=== PATIENT | male | born 1980 | race African-American/Black ===

== ENCOUNTER 2017-02-09 21:49 | Emergency (ER) | payer OTHER ==
[2017-02-09 22:03] VITALS: BP 137/82; PULSE 93; TEMP 98.5; BMI 31.1
[2017-02-09] MEDS ORDERED: DIPHTH,PERTUSS(ACELL),TET VAC 0.5 ML VIAL IM ONE (22:53)
[2017-02-09] MEDS ORDERED: CEPHALEXIN MONOHYDRATE 500 MG CAPSULE (UD) PO ONE (22:58)
--- NOTE | 2017-02-09 22:58 | PDOC ---
History of Present Illness - General Chief Complaint: Laceration Stated Complaint: INJURY TO THUMB Time Seen by Provider: 02/09/17 22:35 History Source: Patient - History of Present Illness Initial Comments: 02/09/17 22:55 36 year old male reports accidentally drilling left thumb while fixing the cabinet sustaine 2 cm laceration to proximal end of left thumb. patient able full rom. reports sensation to finger tips. last tetanus unknown Past History - Past Medical History Allergies/Adverse Reactions: Allergies Allergy/AdvReac Type Severity Reaction Status Date / Time No Known Allergies Allergy Verified 02/09/17 22:00 Home Medications: Ambulatory Orders Cephalexin Monohydrate [Keflex -] 250 mg PO Q8H #21 capsule 02/10/17 Other medical history: Pt denies - Surgical History Abdominal Surgery: Yes (HERNIA) - Psycho/Social/Smoking Cessation Hx Anxiety: No Suicidal Ideation: No Smoking History: Never smoked Have you smoked in the past 12 months: No Information on smoking cessation initiated: No Hx Alcohol Use: No Drug/Substance Use Hx: No Substance Use Type: None Review of Systems - Review of Systems Able to Perform ROS?: Yes Is the patient limited [place] proficient: No Integumentary: Yes: Other (laceration) *Physical Exam - Vital Signs Last Vital Signs Temp Pulse Resp BP Pulse Ox 98.5 F 93 H 18 137/82 100 02/09/17 22:00 02/09/17 22:00 02/09/17 22:00 02/09/17 22:00 02/09/17 22:00 - Physical Exam General Appearance: Yes: Appropriately Dressed Cardiovascular: positive: Regular Rhythm, Regular Rate Extremity: positive: Other (left thumb proximal end ~ 2 cm laceration. full rom sensation to distal end) Procedures - Laceration/Wound Repair Left Finger 1st digit Wound Length: to 2.5 cm (2cm) Wound Explored: clean Wound's Depth, Shape: irregular Irrigated w/ Saline: Yes Betadine Prep: Yes Anesthesia: 1% Lidocaine Amount of Anesthetic (ccs): 2 Wound Debrided: minimal Wound Repaired With: Sutures Suture Size/Type: 4:0 Number of Sutures: 4 Layer Closure: No Sterile Dressing Applied: Yes Splint Applied: No Sling Applied: No Progress Note - Progress Note Progress Note: A: thumb laceration P: see procedure note *DC/Admit/Observation/Transfer Diagnosis at time of Disposition: Thumb laceration Qualifiers: Encounter type: initial encounter Damage to nail status: without damage Foreign body presence: without foreign body Laterality: left Qualified Code(s): S61.012A - Laceration without foreign body of left thumb without damage to nail , initial encounter - Discharge Dispostion Disposition: HOME - Prescriptions Prescriptions: Cephalexin Monohydrate [Keflex -] 250 mg PO Q8H #21 capsule - Referrals Referrals: STAFF,NOT ON [Primary Care Provider] - Juan Robles MD [Staff Physician] - - Patient Instructions Printed Discharge Instructions: DI for Laceration Repair Additional Instructions: keep wound clean and dry. take cephalexin as ordered follow up with your doctor for a wound check in 48 hours. return to the ER 7 days for suture removal. - Post Discharge Activity Work/School Note: Back to Work
[2017-02-09] MEDS ORDERED: CEPHALEXIN MONOHYDRATE 250 MG CAPSULE (FP) ONE (23:16)
--- NOTE | 2017-02-10 00:25 | PDOC ---
*Physical Exam - Vital Signs Last Vital Signs Temp Pulse Resp BP Pulse Ox 98.5 F 93 H 18 137/82 100 02/09/17 22:00 02/09/17 22:00 02/09/17 22:00 02/09/17 22:00 02/09/17 22:00 ED Treatment Course - Medications Given in the ED: ED Medications Discontinued Medications Generic Name Dose Route Start Last Admin Trade Name Dilan PRN Reason Stop Dose Admin Cephalexin HCl 500 mg 02/09/17 22:58 02/09/17 23:23 Keflex - PO 02/09/17 22:59 500 mg ONCE ONE Administration Diphtheria/Tetanus/Acell Pertussis 0.5 ml 02/09/17 22:53 02/09/17 23:22 Adacel Adolescent/Adult - IM 02/09/17 22:54 0.5 ml .ONCE ONE Administration Medical Decision Making - Medical Decision Making 02/10/17 00:25 agree with care from ANGELIA Hernandez *DC/Admit/Observation/Transfer Diagnosis at time of Disposition: Thumb laceration - Discharge Dispostion Disposition: HOME - Prescriptions Prescriptions: Cephalexin Monohydrate [Keflex -] 250 mg PO Q8H #21 capsule - Referrals Referrals: Juan Robles MD [Staff Physician] - STAFF,NOT ON [Primary Care Provider] - - Patient Instructions Printed Discharge Instructions: DI for Laceration Repair Additional Instructions: keep wound clean and dry. take cephalexin as ordered follow up with your doctor for a wound check in 48 hours. return to the ER 7 days for suture removal. - Post Discharge Activity Work/School Note: Back to Work
== END 2017-02-10 00:41 | disposition home or self-care (01) ==
LOC: JER 21:49
PROC: 0HQGXZZ Repair Left Hand Skin, External Approach (ICD-10-PCS; principal; 2017-02-09)
PROC: 3E0234Z Introduction of Serum, Toxoid and Vaccine into Muscle, Percutaneous Approach (ICD-10-PCS; 2017-02-09)
DX: S61.012A Laceration without foreign body of left thumb without damage to nail, initial encounter (principal); W29.8XXA Contact with other powered hand tools and household machinery, initial encounter; Y93.E9 Activity, other interior property and clothing maintenance; Y92.038 Other place in apartment as the place of occurrence of the external cause; Y99.8 Other external cause status
CPT/HCPCS: 73140-TC-LT; 99283-25